=== PATIENT | female | born 1985 | race Caucasian/White ===

== ENCOUNTER 2016-12-26 01:15 | Inpatient (IN) | payer MEDICARE, OTHER ==
[2016-12-26] MEDS ORDERED: Sodium Chloride 0.9% 1,000 ML IV ONE (01:33)
[2016-12-26] MEDS ORDERED: Iohexol 240 (50 ml) PO ONE (01:35)
[2016-12-26] MEDS ORDERED: Iohexol 240 (50 ml) ONE (01:54)
[2016-12-26] MEDS ORDERED: Sodium Chloride 0.9% 1,000 ML ONE (01:54)
[2016-12-26 01:58] LABS: BASO # 0.1 K/uL (0.0-0.2); BASO % 0.5 % (0.0-2.0); EOS # 0.5 K/uL (0.0-0.7); EOS % 2.9 % (0.0-4.0); HEMATOCRIT 42.4 % (34.0-47.0); LYMPH # 2.6 K/uL (1.0-4.3); LYMPH % 14.7 % (20.0-40.0); MEAN CELL VOLUME 80.8 fL (81.0-99.0); MEAN CORPUSCULAR HEMOGLOBIN 26.8 pg (27.0-31.0); MEAN CORPUSCULAR HGB CONC 33.2 g/dL (33.0-37.0); MEAN PLATELET VOLUME 8.6 fL (7.2-11.7); MONO # 1.2 K/uL (0.0-0.8); MONO % 6.9 % (0.0-10.0); RED CELL DISTRIBUTION WIDTH 12.2 % (11.5-14.5); WHITE BLOOD COUNT 17.7 K/uL (4.8-10.8)
[2016-12-26 02:01] LABS: RBC URINE < 1 /hpf (0-3); URINE BILIRUBIN NEGATIVE (NEGATIVE); URINE BLOOD NEGATIVE (NEGATIVE); URINE COLOR Yellow (YELLOW); URINE GLUCOSE (UA) NORMAL (Normal); URINE KETONE NEGATIVE (NEGATIVE); URINE LEUKOCYTE ESTERASE TRACE Leu/uL (Negative); URINE PROTEIN NEGATIVE (NEGATIVE); URINE UROBILINOGEN NORMAL mg/dL (0.2-1.0); WBC URINE 1 /hpf (0-5)
--- NOTE | 2016-12-26 02:01 | C.PDOC ---
History Of Present Illness 31 year old female presents to the ED with complaints of RLQ abdominal pain that began at approximately 4pm today. Patient denies any nausea, vomiting, or dysuria. Chief Complaint (Nursing): Abdominal Pain History Per: Patient History/Exam Limitations: no limitations Onset/Duration Of Symptoms: Hrs Current Symptoms Are (Timing): Still Present Location Of Pain/Discomfort: RLQ Quality Of Discomfort: "Pain" Associated Symptoms: denies: Fever, Chills, Nausea, Vomiting, Urinary Symptoms Recent travel outside of the [place]: No Abnormal Vaginal Bleeding: No Past Medical History Reviewed: Historical Data, Nursing Documentation, Vital Signs Vital Signs: Last Vital Signs Temp 98.5 F 12/26/16 01:25 Pulse 80 12/26/16 01:25 Resp 14 12/26/16 01:25 BP 119/72 12/26/16 01:25 Pulse Ox 98 12/26/16 04:26 - Medical History PMH: Anxiety, Bipolar Disorder, Depression, Personality Disorder, Schizophrenia - [facility] Procedures APPLICATION OF SPLINT (12/29/14) REPLAC M/S IMMOB DEV NEC (01/04/15) Family History: States: Unknown Family Hx - Social History Hx Tobacco Use: No Hx Alcohol Use: No Hx Substance Use: No - Immunization History Hx Tetanus Toxoid Vaccination: No Hx Influenza Vaccination: No Hx Pneumococcal Vaccination: No Review Of Systems Constitutional: Negative for: Fever, Chills, Sweats Cardiovascular: Negative for: Chest Pain, Palpitations Respiratory: Negative for: Cough, Shortness of Breath Gastrointestinal: Positive for: Abdominal Pain (RLQ). Negative for: Nausea, Vomiting, Diarrhea Genitourinary: Negative for: Dysuria Physical Exam - Physical Exam Appears: Non-toxic, No Acute Distress Skin: Warm, Dry Head: Atraumatic Oral Mucosa: Moist Neck: Supple Chest: Symmetrical, No Deformity Cardiovascular: Rhythm Regular Respiratory: No Rales, No Rhonchi, No Stridor, No Wheezing Gastrointestinal/Abdominal: Soft, No Tenderness, No Distention, No Guarding, No Rebound Extremity: Normal ROM, No Tenderness Neurological/Psych: Oriented x3 ED Course And Treatment - Laboratory Results Result Diagrams: 12/26/16 01:53 12/26/16 01:53 O2 Sat by Pulse Oximetry: 98 - CT Scan/US CT ABDOMEN AND PELVIS W IV CONTRAST Other Rad Studies (CT/US): Read By Radiologist, Radiology Report Reviewed CT/US Interpretation: IMPRESSION: 1. Findings suggestive of acute appendicitis. Clinical correlation is needed. 2. RIGHT ovarian dermoid. 3. Probable RIGHT ovarian cyst. 4. Incidental/non-acute findings are described above Disposition Discussed With : Júnior Lemon Doctor Will See Patient In The: Hospital Counseled Patient/Family Regarding: Diagnosis - Disposition Disposition: HOSPITALIZED Disposition Time: 04:26 Condition: STABLE - Clinical Impression Clinical Impression: Acute appendicitis - Scribe Statement The provider has reviewed the documentation as recorded by the Danaibtian Collado All medical record entries made by the Cleo were at my direction and personally dictated by me. I have reviewed the chart and agree that the record accurately reflects my personal performance of the history, physical exam, medical decision making, and the department course for this patient. I have also personally directed, reviewed, and agree with the discharge instructions and disposition.
[2016-12-26 02:38] LABS: CHLORIDE 100 mmol/L (98-107); SODIUM 137 mmol/L (132-148)
[2016-12-26 02:39] LABS: POTASSIUM 3.7 mmol/L (3.6-5.2)
[2016-12-26 02:40] LABS: GFR AFRICAN-AMERICAN > 60
[2016-12-26 02:41] LABS: ALB/GLOB RATIO 1.1 (1.0-2.1); ALKALINE PHOSPHATASE 67 U/L (38-126); ALT/SGPT 18 U/L (9-52); AST/SGOT 19 U/L (14-36); BILIRUBIN,TOTAL 0.4 mg/dL (0.2-1.3); BLOOD UREA NITROGEN 13 mg/dL (7-17); CARBON DIOXIDE 25 mmol/L (22-30); GLUCOSE,RANDOM 95 mg/dL (65-105); TOTAL PROTEIN 7.4 g/dL (6.3-8.3)
[2016-12-26] MEDS ORDERED: Iohexol 350mg/ml 100 ML ONE (03:25)
--- NOTE | 2016-12-26 04:18 | CT ---
EXAM: CT Abdomen and Pelvis With Intravenous Contrast CLINICAL HISTORY: 31 years old, female; Pain; Abdominal pain; Patient HX: 6-4-15; Additional info: Rlq pain/ tenderness TECHNIQUE: Axial computed tomography images of the abdomen and pelvis with intravenous contrast. This CT exam was performed using one or more of the following dose reduction techniques: automated exposure control, adjustment of the mA and/or kV according to patient size, and/or use of iterative reconstruction technique. Coronal and sagittal reformatted images were created and reviewed. CONTRAST: 100 mL of [id number] administered intravenously. COMPARISON: No relevant prior studies available. FINDINGS: Lower thorax: No acute findings. ABDOMEN: Liver: Unremarkable. No mass. Gallbladder and bile ducts: No calcified stones. No ductal dilation. Pancreas: No ductal dilation. No mass. Spleen: No splenomegaly. Adrenals: No mass. Kidneys and ureters: No mass. No hydronephrosis. Stomach and bowel: No definite mural thickening. No obstruction. Appendix: Enlarged appendix, measuring up to 0.9 cm in diameter. Mild mucosal enhancement. Apparent minimal stranding about appendix. PELVIS: Bladder: Unremarkable. Reproductive: 1.6 x 1.5 x 1.9 cm hypodense lesion within RIGHT ovary. 3.8 x 2.7 x 3.0 cm septated fat containing lesion within RIGHT ovary. ABDOMEN and PELVIS: Intraperitoneal space: No significant fluid collection. No free air. Bones/joints: No acute fracture. Soft tissues: Unremarkable. Vasculature: Unremarkable. No aneurysm. Lymph nodes: No pathologically enlarged lymph nodes. IMPRESSION: 1. Findings suggestive of acute appendicitis. Clinical correlation is needed. 2. RIGHT ovarian dermoid. 3. Probable RIGHT ovarian cyst. 4. Incidental/non-acute findings are described above. THIS REPORT CONTAINS FINDINGS THAT MAY BE CRITICAL TO PATIENT CARE. The findings were verbally communicated via telephone conference with Maximus Hernández at 4:18 AM EDT on 12/26/2016. The findings were acknowledged and understood.
[2016-12-26] MEDS ORDERED: Piperacillin/Tazobact 3.375 gm 100 ML IVPB STA (04:20)
[2016-12-26] MEDS ORDERED: Piperacillin/Tazobact 3.375 gm 100 ML IVPB ONE (04:32)
--- NOTE | 2016-12-26 05:23 | CP.PCM.CON ---
History of Present Illness - History of Present Illness History of Present Illness: Gen Sx H&P: Dr Lemon Pt is a 31F with no significant PMH. Pt presents to ED with abdominal pain that started around 4PM yesterday. Pain initially 6/10 around the umbilicus. Over time pt progressively worsened and migrated to RLQ. Pt has had associated nausea, but has not vomited. Admits to subjective fevers and diarrhea. Pt states she has not had pain like this before. Pain is worse with movement. Denies any inciting events. Denies any recent sick contacts. Denies chills, constipation, dysuria, abnormal menstrual bleeding. CT concerning for early appendicitis. Review of Systems - Review of Systems All systems: reviewed and no additional remarkable complaints except (as per hpi ) Past Patient History - Infectious Disease Hx of Infectious Diseases: None - Past Social History Smoking Status: Never Smoked - CARDIAC Hx Hypertension: No - PULMONARY Hx Tuberculosis: No - NEUROLOGICAL Hx Seizures: No - HEMATOLOGICAL/ONCOLOGICAL Hx Human Immunodeficiency Virus (HIV): No - GENITOURINARY/GYNECOLOGICAL Hx Sexually Transmitted Disorders: No - PSYCHIATRIC Hx Anxiety: Yes Hx Bipolar Disorder: Yes Hx Depression: Yes Hx Schizophrenia: Yes Hx Substance Use: No - SURGICAL HISTORY Hx Surgeries: Yes Other/Comment: ankle x3 - ANESTHESIA Hx Anesthesia: Yes Meds Allergies/Adverse Reactions: Allergies Allergy/AdvReac Type Severity Reaction Status Date / Time naproxen sodium [From Aleve] Allergy Verified 12/26/16 01:29 - Medications Medications: Current Medications Sodium Chloride (Sodium Chloride 0.9%) 1,000 mls @ 100 mls/hr IV .Q10H ONE Stop: 12/26/16 11:32 Last Admin: 12/26/16 01:58 Dose: 100 mls/hr Piperacillin Sod/Tazobactam Sod (Zosyn 3.375 Gm Iv Premix) 3.375 gm in 50 mls @ 100 mls/hr IVPB Q6H MATTHWE Sodium Chloride (Sodium Chloride 0.9%) 1,000 mls @ 100 mls/hr IV .Q10H MATTHEW Morphine Sulfate (Morphine) 4 mg IVP Q4 PRN PRN Reason: Pain, Mild (1-3) Ondansetron HCl (Zofran Inj) 4 mg IVP Q6H PRN PRN Reason: Nausea/Vomiting Physical Exam - Constitutional Appears: Non-toxic, No Acute Distress - Head Exam Head Exam: NORMOCEPHALIC - Eye Exam Eye Exam: Normal appearance. absent: Scleral icterus - ENT Exam ENT Exam: Normal Exam - Respiratory Exam Respiratory Exam: absent: Accessory Muscle Use, Respiratory Distress - Cardiovascular Exam Cardiovascular Exam: REGULAR RHYTHM. absent: Tachycardia - GI/Abdominal Exam GI & Abdominal Exam: Guarding (voluntary), Rebound, Soft, Tenderness (RUQ, + rebound, + McBurney's, -Rovsing's). absent: Distended, Firm, Hernia, Mass, Rigid - Extremities Exam Extremities exam: Positive for: normal inspection, pedal pulses present. Negative for: calf tenderness, pedal edema - Neurological Exam Neurological exam: Alert, Oriented x3 - Psychiatric Exam Psychiatric exam: Normal Affect, Normal Mood - Skin Skin Exam: Normal Color, Warm Results - Vital Signs Recent Vital Signs: Last Vital Signs Temp 98.1 F 12/26/16 04:28 Pulse 98 H 12/26/16 04:28 Resp 18 12/26/16 04:28 BP 122/88 12/26/16 04:28 Pulse Ox 100 12/26/16 04:28 - Labs Result Diagrams: 12/26/16 01:53 12/26/16 01:53 Assessment & Plan - Assessment and Plan (Free Text) Assessment: 31F with abdominal pain, likely appendicitis Plan: NPO IV fluids Abx likely OR for laparoscopic appendectomy will d/w Dr Ion Rebolledo, PGY2 - Date & Time Date: 12/26/16 Time: 05:24
[2016-12-26] MEDS: Sodium Chloride 0.9% 1,000 ML IV SCH ×2 (06:10→21:29)
[2016-12-26] MEDS: Piperacill/Tazo 3.375gm in Dex 3.375 GM/50 ML BAG IVPB SCH ×4 (06:15→23:05)
[2016-12-26] MEDS ORDERED: Midazolam 2 MG/2 ML VIAL ONE (12:19)
[2016-12-26] MEDS ORDERED: Propofol 10 mg/ml Inj (20 ML) ONE (12:19)
[2016-12-26] MEDS ORDERED: ePHEDrine 50 mg/ml Inj ONE (12:22)
[2016-12-26] MEDS ORDERED: Rocuronium 10 mg/ml (5 ml) ONE (12:22)
[2016-12-26] MEDS ORDERED: Succinylcholine Chloride 20 mg/ml Syr (5 ml) IV ONE (12:22)
[2016-12-26] MEDS ORDERED: Lactated Ringer's 1,000 ML IV ONE ×2 (14:05→14:59)
[2016-12-26] MEDS ORDERED: Bupivacaine-Epi 0.5%-1:200,000 PF Inj ONE (14:15)
[2016-12-26] MEDS ORDERED: Neostigmine Methylsulfate 3mg/3ml Syringe IV ONE (14:52)
--- NOTE | 2016-12-26 15:16 | PCM.SURG1 ---
Surgeon's Initial Post Op Note - Surgeon's Notes Surgeon: [employer] Supervisor: Brad Pre-Operative Diagnosis: Acute appendicitis Operative Findings: inflamed appendix Post-Operative Diagnosis: acute appendicitis Operation Performed: Laparoscopic appendectomy Specimen/Specimens Removed: appendix Estimated Blood Loss: EBL {In ML}: 10 Date of Surgery/Procedure: 12/26/16 Time of Surgery/Procedure: 14:20
[2016-12-26] MEDS: HYDROmorphone 0.5 mg/0.5 ml ISec IVP PRN ×3 (15:32→16:02)
--- NOTE | 2016-12-26 16:18 | OP ---
PROCEDURE DATE: 12/26/2016 PREOPERATIVE DIAGNOSIS: Acute appendicitis. POSTOPERATIVE DIAGNOSIS: Acute appendicitis, plus a right ovarian cyst. PROCEDURE PERFORMED: Laparoscopic appendectomy. FINDINGS: The appendix was markedly inflamed, but no perforation was noted. There is a large mass o n the right adnexa consistent with a right ovarian cyst. There is no evidence of any rupture ____. PROCEDURE: Under general anesthesia, the patient prepared and draped in sterile fashion. CO2 was in sufflated through a Veress needle inserted in the umbilicus to about 15 mmHg pressure. A 12 mm troca r was inserted through which a laparoscope was inserted. Under direct vision, a 5 mm suprapubic port and a 5 mm left lower quadrant port were inserted. The patient was placed in a Trendelenburg positi on, turned over towards the left side. The appendix was grasped. The window was created between the mesentery and the appendix. The mesoappendix was transected with the Endo-LAUREN with white terrell an d then followed by the transection of the base of the appendix with the blue terrell. This was place d in an EndoCatch, extracted through the umbilical port. The area was irrigated with copious amount of saline solution. Irrigating fluid was suctioned out. CO2 allowed to escape from the peritoneal c avity. Trocars removed. The wound closed in a routine fashion. ESTIMATED BLOOD LOSS: About 10 mL. COMPLICATIONS: None. Júnior Lemon MD cc: 159 TT: 12/26/2016 16:17:44 al
[2016-12-27 00:49] VITALS: RESP 20
[2016-12-27] MEDS: Piperacill/Tazo 3.375gm in Dex 3.375 GM/50 ML BAG IVPB SCH (06:10)
[2016-12-27 07:30] LABS: HEMATOCRIT 36.4 % (34.0-47.0); MEAN CELL VOLUME 80.8 fL (81.0-99.0); MEAN CORPUSCULAR HEMOGLOBIN 27.3 pg (27.0-31.0); MEAN CORPUSCULAR HGB CONC 33.8 g/dL (33.0-37.0); MEAN PLATELET VOLUME 8.7 fL (7.2-11.7); RED CELL DISTRIBUTION WIDTH 12.4 % (11.5-14.5); WHITE BLOOD COUNT 10.7 K/uL (4.8-10.8)
[2016-12-27] MEDS ORDERED: Oxycodone/Acetaminophen 5/325 mg Tab PO PRN (08:32)
--- NOTE | 2016-12-27 09:48 | CP.PCM.DIS ---
Provider - Provider Date of Admission: 12/26/16 04:28 Attending physician: Júnior Lemon MD Time Spent in preparation of Discharge (in minutes): 40 Hospital Course - Lab Results Lab Results: Most Recent Lab Values WBC 10.7 K/uL (4.8-10.8) 12/27/16 07:07 RBC 4.50 Mil/uL (3.80-5.20) 12/27/16 07:07 Hgb 12.3 g/dL (11.0-16.0) 12/27/16 07:07 Hct 36.4 % (34.0-47.0) 12/27/16 07:07 MCV 80.8 fL (81.0-99.0) L 12/27/16 07:07 MCH 27.3 pg (27.0-31.0) 12/27/16 07:07 MCHC 33.8 g/dL (33.0-37.0) 12/27/16 07:07 RDW 12.4 % (11.5-14.5) 12/27/16 07:07 Plt Count 202 K/uL (130-400) 12/27/16 07:07 MPV 8.7 fL (7.2-11.7) 12/27/16 07:07 Neut % (Auto) 75.0 % (50.0-75.0) 12/26/16 01:53 Lymph % (Auto) 14.7 % (20.0-40.0) L 12/26/16 01:53 Toombs % (Auto) 6.9 % (0.0-10.0) 12/26/16 01:53 Eos % (Auto) 2.9 % (0.0-4.0) 12/26/16 01:53 Baso % (Auto) 0.5 % (0.0-2.0) 12/26/16 01:53 Neut # 13.3 K/uL (1.8-7.0) H 12/26/16 01:53 Lymph # 2.6 K/uL (1.0-4.3) 12/26/16 01:53 Toombs # 1.2 K/uL (0.0-0.8) H 12/26/16 01:53 Eos # 0.5 K/uL (0.0-0.7) 12/26/16 01:53 Baso # 0.1 K/uL (0.0-0.2) 12/26/16 01:53 Sodium 137 mmol/L (132-148) 12/26/16 01:53 Potassium 3.7 mmol/L (3.6-5.2) 12/26/16 01:53 Chloride 100 mmol/L (98-107) 12/26/16 01:53 Carbon Dioxide 25 mmol/L (22-30) 12/26/16 01:53 Anion Gap 15 (10-20) 12/26/16 01:53 BUN 13 mg/dL (7-17) 12/26/16 01:53 Creatinine 0.8 MG/DL (0.7-1.2) 12/26/16 01:53 Est GFR ( Amer) > 60 12/26/16 01:53 Est GFR (Non-Af Amer) > 60 12/26/16 01:53 Random Glucose 95 mg/dL (65-105) 12/26/16 01:53 Calcium 9.0 mg/dl (8.6-10.4) 12/26/16 01:53 Total Bilirubin 0.4 mg/dL (0.2-1.3) 12/26/16 01:53 AST 19 U/L (14-36) 12/26/16 01:53 ALT 18 U/L (9-52) 12/26/16 01:53 Alkaline Phosphatase 67 U/L (38-126) 12/26/16 01:53 Total Creatine Kinase 152 U/L (30-135) H 12/27/16 02:02 CK-MB (Mass) 1.65 ng/mL (0.0-3.38) 12/27/16 02:02 Troponin I, Quant < 0.0120 ng/mL (0.00-0.120) 12/27/16 02:02 Total Protein 7.4 g/dL (6.3-8.3) 12/26/16 01:53 Albumin 3.9 g/dL (3.5-5.0) 12/26/16 01:53 Globulin 3.6 gm/dL (2.2-3.9) 12/26/16 01:53 Albumin/Globulin Ratio 1.1 (1.0-2.1) 12/26/16 01:53 Lipase 75 U/L (23-300) 12/26/16 01:53 Beta HCG, Quant < 2.39 mIU/ML 12/26/16 01:53 Urine Color Yellow (YELLOW) 12/26/16 01:53 Urine Clarity Clear (Clear) 12/26/16 01:53 Urine pH 5.0 (5.0-8.0) 12/26/16 01:53 Ur Specific [place] 1.023 (1.003-1.030) 12/26/16 01:53 Urine Protein Negative mg/dL (NEGATIVE) 12/26/16 01:53 Urine Glucose (UA) Normal mg/dL (Normal) 12/26/16 01:53 Urine Ketones Negative mg/dL (NEGATIVE) 12/26/16 01:53 Urine Blood Negative (NEGATIVE) 12/26/16 01:53 Urine Nitrate Negative (NEGATIVE) 12/26/16 01:53 Urine Bilirubin Negative (NEGATIVE) 12/26/16 01:53 Urine Urobilinogen Normal mg/dL (0.2-1.0) 12/26/16 01:53 Ur Leukocyte Esterase Trace Renea/uL (Negative) 12/26/16 01:53 Urine WBC (Auto) 1 /hpf (0-5) 12/26/16 01:53 Urine RBC (Auto) < 1 /hpf (0-3) 12/26/16 01:53 Ur Squamous Epith Cells 1 /hpf (0-5) 12/26/16 01:53 Urine HCG, Qual Negative (NEGATIVE) 12/26/16 01:53 - Hospital Course Hospital Course: 31F presented to [facility], [place] for appendicitis as showed on CT. Patient underwent laparoscopic appendectomy which was uneventful. Patient feeling better today. No more leukocytosis. Tolerating diet. Ready to discharge. Discharge Exam - Head Exam Head Exam: NORMOCEPHALIC - Eye Exam Eye Exam: EOMI, PERRL - Respiratory Exam Respiratory Exam: Clear to PA & Lateral, NORMAL BREATHING PATTERN - Cardiovascular Exam Cardiovascular Exam: REGULAR RHYTHM, +S1, +S2 - GI/Abdominal Exam GI & Abdominal Exam: Soft. absent: Distended, Firm, Guarding, Rebound, Rigid, Tenderness Additional comments: incisions CDI - Neurological Exam Neurological exam: Alert, Oriented x3 - Psychiatric Exam Psychiatric exam: Normal Affect, Normal Mood - Skin Skin Exam: Dry, Intact, Normal Color, Warm Discharge Plan - Discharge Medications Prescriptions: oxyCODONE/Acetaminophen [Percocet 5/325 mg Tab] 1 tab PO Q6 PRN #20 tab PRN Reason: Pain, Moderate (4-7) - Follow Up Plan Condition: STABLE Disposition: HOME/ ROUTINE Instructions: Laparoscopic Appendectomy (DC) Additional Instructions: 1) Follow up with Dr. Lemon in 1 week upon discharge. 2) Can shower, but do not bath, or submerge wound in water. 3) Take prescriptions as directed. 4) No heavy lifting. Referrals: Júnior Lemon MD [Staff Provider] -
[2016-12-27 13:41] VITALS: BP 115/76; PULSE 88; TEMP 98.4; O2SAT 99
--- NOTE | 2016-12-28 22:23 | CARD ---
APPROVED REPORT EKG Measurement Heart [id number] <Conclusion> Normal sinus rhythm with sinus arrhythmia Normal ECG
== END 2016-12-27 13:28 | disposition home or self-care (01) | DRG 343 ==
LOC: C.ER 01:15 → C.6T 04:28
PROVIDERS: ADMIT Surgery; ATTEND Surgery
PROC: 0DTJ4ZZ Resection of Appendix, Percutaneous Endoscopic Approach (ICD-10-PCS; principal; 2016-12-26 10:45)
DX: K35.80 Unspecified acute appendicitis (principal); F31.9 Bipolar disorder, unspecified; N83.201 Unspecified ovarian cyst, right side; F60.9 Personality disorder, unspecified

== ENCOUNTER 2017-04-13 18:14 | Emergency (ER) | payer MEDICAID, OTHER ==
[2017-04-13 18:31] VITALS: TEMP 97.8
--- NOTE | 2017-04-13 20:08 | C.PDOC ---
History Of Present Illness Patient is a 32 y/o female who presents to the ED requesting medication to help her sleep. Patient notes "I cannot get my mind to relax". Patient notes regularly seeing psychiatrist and was prescribed Paxil and Seroquel; admits to stopping medication five months ago but continues the scheduled appointments. Denies HI or SI. Notes feeling anxious. No other physical complaints at this time. Time Seen by Provider: 04/13/17 19:10 Chief Complaint (Nursing): Psychiatric Evaluation History Per: Patient History/Exam Limitations: no limitations Onset/Duration Of Symptoms: Days Current Symptoms Are (Timing): Still Present Suicide/Self Injury Attempted (Context): None Associated Symptoms: Anxiety Recent travel outside of the [place]: No Past Medical History Reviewed: Historical Data, Nursing Documentation, Vital Signs Vital Signs: Last Vital Signs Temp 97.8 F 04/13/17 20:16 Pulse 72 04/13/17 20:16 Resp 14 04/13/17 20:16 BP 126/78 04/13/17 20:16 Pulse Ox 97 04/13/17 21:07 - Medical History PMH: Anxiety, Bipolar Disorder, Depression, Personality Disorder, Schizophrenia Denies: HIV, HTN, Seizures, Sexually Transmitted Disease Surgical History: Appendectomy - [facility] Procedures APPLICATION OF SPLINT (12/29/14) REPLAC M/S IMMOB DEV NEC (01/04/15) RESECTION OF APPENDIX, PERCUTANEOUS ENDOSCOPIC APPROACH (12/26/16) Family History: States: Unknown Family Hx - Social History Hx Tobacco Use: No Hx Alcohol Use: No Hx Substance Use: No - Immunization History Hx Tetanus Toxoid Vaccination: No Hx Influenza Vaccination: No Hx Pneumococcal Vaccination: No Review Of Systems Constitutional: Negative for: Fever, Chills Psych: Positive for: Anxiety. Negative for: Suicidal ideation Physical Exam - Physical Exam Appears: Well, Non-toxic, Other (tearful when discussing social stressers) Skin: Normal Color, Warm, Dry Head: Atraumatic, Normacephalic Eye(s): bilateral: Normal Inspection, EOMI Nose: Normal Oral Mucosa: Moist Neck: Normal ROM, Supple Chest: Symmetrical Cardiovascular: Rhythm Regular, No Murmur Respiratory: Normal Breath Sounds, No Rales, No Rhonchi, No Wheezing Neurological/Psych: Oriented x3, Normal Speech, Normal Cognition, Other (no focal deficits) ED Course And Treatment O2 Sat by Pulse Oximetry: 97 Progress Note: Atarax administered. Crisis notified. Patient was offered inpatient evaluation but patient refused, noting she will follow up with her psychiatrist tomorrow. Patient was evaluated by eligibility worker Francesca and was cleared for discharge. Will follow up with psychiatrist tomorrow. Disposition - Disposition Disposition: HOME/ ROUTINE Disposition Time: 20:07 Condition: STABLE Additional Instructions: Follow up with your psychiatrist tomorrow. Return to ER if symptoms persist or worsen. Prescriptions: hydrOXYzine HCl [Atarax] 25 mg PO Q6H PRN #10 tab PRN Reason: Anxiety Instructions: Anxiety (ED) Forms: [employer] ([place]) - Clinical Impression Clinical Impression: Anxiety - Scribe Statement The provider has reviewed the documentation as recorded by the Scribe Deepika Gatica All medical record entries made by the Scribe were at my direction and personally dictated by me. I have reviewed the chart and agree that the record accurately reflects my personal performance of the history, physical exam, medical decision making, and the department course for this patient. I have also personally directed, reviewed, and agree with the discharge instructions and disposition.
[2017-04-13 20:18] VITALS: BP 126/78; PULSE 72; RESP 14
[2017-04-13 20:49] VITALS: O2SAT 97
== END 2017-04-13 20:17 | disposition home or self-care (01) ==
LOC: C.ER 18:14
DX: F41.9 Anxiety disorder, unspecified (principal)